=== PATIENT | female | born 1975 | race Caucasian/White ===

== ENCOUNTER 2020-03-10 19:20 | Outpatient (REF) | payer OTHER, SELFPAY ==
[2020-03-10 21:16] LABS: HCT 39.7 % (36.0-46.0); HGB 13.6 g/dL (11.2-15.7); MCHC 34.3 % (32.0-36.0); MCV 93.4 fL (80-95); MPV 10.1 fL (8.0-11.0); Platelet Count 263 10^3/uL (130-400); RBC 4.25 10^6/uL (3.93-5.22); RDW-SD 41.6 fL; WBC 10.17 10^3/uL (4.4-10.8)
[2020-03-10 21:56] LABS: Calculated LDL 87 mg/dL (<100); Cholesterol 149 mg/dL (<200); HDL Cholesterol 57 mg/dL (40-60); Triglyceride 25 mg/dL (<150)
== END 2020-03-10 19:40 ==
LOC: NCHCN 19:20
PROVIDERS: PCP Internal Medicine; Visit Provider Family Medicine
DX: N92.0 Excessive and frequent menstruation with regular cycle (principal); Z13.220 Encounter for screening for lipoid disorders
CPT/HCPCS: 80061; 85027

== ENCOUNTER 2022-02-01 13:12 | Outpatient (REF) | payer OTHER, SELFPAY ==
--- NOTE | 2022-02-01 09:50 | SKI_PTH ---
PATIENT: Elizabeth Rodriguez LOC: [facility] U#:[id number] AGE/SX: 46/F ROOM: RE02/01/[address]: Chico Miller : 1975 BED: DIS: 02/01/2022 SPEC #: [id number] RECD: 02/01/22 17:37 STATUS: TAMARA REQ #: [id number] KARLIE: 02/01/22 09:[address]: Chico Miller DEPT: Surgical Specimen RECD BY: Patricia Elias ENTERED: 02/01/22 17:38 SP TYPE: JIM CARR DR: Chema Boston Tissues: 1 - SKIN BIOPSY(SHAVE/PUNCH) Procedures: SKIN LEVEL 4 Comments: [id number]
== END 2022-02-01 13:13 | disposition home or self-care (01) ==
LOC: NCHCN 13:12
PROVIDERS: PCP Internal Medicine; Visit Provider Family Medicine
DX: L43.9 Lichen planus, unspecified (principal)
CPT/HCPCS: 88305

== ENCOUNTER 2024-06-29 15:37 | Outpatient (REF) | payer OTHER, SELFPAY ==
[2024-06-29 17:07] LABS: ALT 33 U/L (14-59); AST 28 U/L (15-37); Albumin 4.1 g/dL (3.4-5.0); Alkaline Phosphatase 91 U/L (46-116); Anion Gap 9.3 mmol/L (3-11); BUN 15 mg/dL (7-18); Bilirubin, Total 0.4 mg/dL (0.2-1.0); CO2 27.7 mmol/L (21.0-32.0); CREATININE 0.9 mg/dL (0.55-1.02); Calcium 9.3 mg/dL (8.5-10.1); Calculated LDL 100 mg/dL (<100); Chloride 106 mmol/L (98-107); Cholesterol 189 mg/dL (<200); Estimated GFR 78.86 (mL/min/1.73m2); Glucose 83 mg/dL (74-106); HDL Cholesterol 83 mg/dL (>or=50); Sodium 143 mmol/L (136-145); Total Protein 7.2 g/dL (6.4-8.2); Triglyceride 31 mg/dL (<150); Vitamin D 25 Total 31 ng/mL (30-100)
== END 2024-06-29 15:38 | disposition home or self-care (01) ==
LOC: NCHCN 15:37
PROVIDERS: PCP Family Medicine; Visit Provider Family Medicine
DX: Z00.00 Encounter for general adult medical examination without abnormal findings (principal); Z13.220 Encounter for screening for lipoid disorders
CPT/HCPCS: 80053; 80061; 82306